=== PATIENT | female | born 1970 | race African-American/Black ===

== ENCOUNTER 2020-07-06 11:02 | Observation (INO) | payer MEDICAID ==
[~2020-07-06] VITALS: Ht 172.7 cm; Wt 95.7 kg
== END 2020-07-06 12:50 | disposition home or self-care (01) ==
LOC: 8 EST LDRP 11:02
PROVIDERS: ADMIT Obstetrics & Gynecology; ATTEND Obstetrics & Gynecology
DX: O09.513 Supervision of elderly primigravida, third trimester (principal); Z3A.37 37 weeks gestation of pregnancy
CPT/HCPCS: 59025; 76815; 76818; G0378

== ENCOUNTER 2020-07-09 09:33 | Observation (INO) | payer MEDICAID ==
[~2020-07-09] VITALS: Ht 165.1 cm; Wt 86.2 kg
[2020-07-09] MEDS ORDERED: LEVO100T MT (11:18)
[2020-07-09] MEDS ORDERED: PREN1TAB78 MT (11:18)
[2020-07-11] MEDS ORDERED: LEVO100T9 PO (06:31)
[2020-07-11] MEDS ORDERED: PNV1TABL50 PO (06:31)
[2020-07-11] MEDS ORDERED: FERR-71 PO (06:31)
[2020-07-11] MEDS ORDERED: CHOL200077 PO (06:31)
== END 2020-07-09 11:30 | disposition home or self-care (01) ==
LOC: LAB 09:33 → EDSTATUS 09:51 → 8 EST LDRP 09:52
PROVIDERS: ADMIT Obstetrics & Gynecology; ATTEND Obstetrics & Gynecology
DX: O09.513 Supervision of elderly primigravida, third trimester (principal); Z20.828 Contact with and (suspected) exposure to other viral communicable diseases; Z3A.38 38 weeks gestation of pregnancy
CPT/HCPCS: 59025; 76815; 76818; G0378; U0003